=== PATIENT | female | born 1985 | race Caucasian/White ===

== ENCOUNTER → 2017-02-28 | Outpatient (CLI) | payer BC ==
[~2017-02-28] MED LIST: JUNEL 1.5/30 301 TAB PO
== END ==
LOC: MC.RAD 11:22
DX: Z12.31 Encounter for screening mammogram for malignant neoplasm of breast (principal); N64.89 Other specified disorders of breast

== ENCOUNTER → 2017-03-02 | Outpatient (CLI) | payer BC | LOC: MC.RAD 12:51 | DX: N63 Unspecified lump in breast (principal) ==

== ENCOUNTER → 2018-04-02 | Outpatient (CLI) | payer BC | LOC: MC.RAD 07:34 | DX: Z12.31 Encounter for screening mammogram for malignant neoplasm of breast (principal); Z98.890 Other specified postprocedural states ==

== ENCOUNTER → 2019-05-27 | Outpatient (CLI) | payer BC | LOC: MC.RAD 07:05 | DX: Z12.31 Encounter for screening mammogram for malignant neoplasm of breast (principal); Z98.890 Other specified postprocedural states ==

== ENCOUNTER → 2020-02-24 | Outpatient (CLI) | payer BC | LOC: COL.RAD 13:46 | DX: E04.9 Nontoxic goiter, unspecified (principal) ==

== ENCOUNTER → 2020-06-04 | Outpatient (CLI) | payer BC | LOC: MC.RAD 07:31 | DX: Z12.31 Encounter for screening mammogram for malignant neoplasm of breast (principal) ==

== ENCOUNTER → 2022-06-27 | Outpatient (CLI) | payer BC | LOC: MC.RAD 06:49 | DX: Z12.31 Encounter for screening mammogram for malignant neoplasm of breast (principal) ==